=== PATIENT | female | born 1960 | race Caucasian/White ===

== ENCOUNTER 2016-03-30 10:30 | Emergency (ER) | payer OTHER ==
--- NOTE | 2016-03-30 11:34 | RAD ---
WRIST- LEFT 3 VIEWS COMPARISON: None. HISTORY: Fall on outstretched hand this morning. Left wrist pain. FINDINGS: Views: Left wrist PA, oblique, and lateral. Bones: Comminuted intra-articular fracture of the distal left radius. Transverse metaphyseal component with impaction and slight dorsal tilt. Intra-articular fracture extends to the surface of the lunate facet of the distal radius. Carpal bone alignment: Normal. Joint spacing: Normal Soft tissues: Normal IMPRESSION: 1. Comminuted displaced intra-articular fracture of the distal left radius epiphysis and metaphysis.
== END 2016-03-30 12:59 | disposition home or self-care (01) ==
LOC: ED 10:30
DX: S62.102A Fracture of unspecified carpal bone, left wrist, initial encounter for closed fracture (principal); W19.XXXA Unspecified fall, initial encounter; E03.9 Hypothyroidism, unspecified; Z85.528 Personal history of other malignant neoplasm of kidney; F41.9 Anxiety disorder, unspecified; F32.9 Major depressive disorder, single episode, unspecified; F17.210 Nicotine dependence, cigarettes, uncomplicated